=== PATIENT | female | born 1955 | race Caucasian/White ===

== ENCOUNTER 2016-12-03 08:10 | Day surgery (SDC) | payer OTHER ==
[~2016-12-03] VITALS: Ht 162.6 cm; Wt 74.0 kg
[~2016-12-03 08:10] MED LIST: 0.9% Sodium Chloride 1,000 ML IV SCH; ALPR0.254 PO; FEM2.5T PO; HYDR25SU10 RC; IBUP400T22 PO; LOVA40TA PO; Lactated Ringer's 1,000 ML IV ONE; MULT-1018 PO; PARO20TA5 PO; Sodium Chloride LOK Flush 10 mL Syringe IV PRN; ZOLP10TA5 PO; fentaNYL-PF 50 mCg/mL 2 mL Inj IVPUSH PRN
[2016-12-03 08:32] VITALS: BP 112/74; PULSE 75; RESP 16; O2SAT 98
[2016-12-03] MEDS ORDERED: METF500T4 PO (08:32)
[2016-12-03 09:53] VITALS: BP 121/91; PULSE 72; RESP 14; O2SAT 100
--- NOTE | 2016-12-03 11:08 | ENDO ---
[address] [address] ENDOSCOPY PROCEDURE PATIENT: JERALD PITT : 1955 MR#: [id number] ADMIT: 12/03/2016 JOB ID: [id number] PROCEDURE: Flexible sigmoidoscopy. INDICATION: Proctitis. The patient had a colonoscopy late last year for rectal bleeding, and there was distal proctitis. Following that, she was given a prescription for steroid as well as Canasa suppositories. She used the steroid suppositories for about two weeks and then it was discontinued, and she has been on Canasa suppositories. She has had no further bleeding episodes. She presents today for surveillance of proctitis. ASA CLASSIFICATION: 2. MALLAMPATI SCORE: 2. MEDICATIONS: Medications were not given at the patient's request. INSTRUMENT USED: [id number]. PREPARATION QUALITY: Good. PROCEDURE DETAILS: After informed consent was obtained, the patient was brought into the GI suite, where she was placed on oxygen via nasal cannula and monitored with continuous pulse oximeter, telemetry, and blood pressure monitoring. A time-out was performed, and then she was placed in a left lateral decubitus position. Digital rectal exam was performed, which was unremarkable. The pediatric colonoscope was then inserted into the rectum and advanced to approximately 30 cm. At 30 cm, we did encounter stool. At this point, the colonoscope was then withdrawn back into the rectum. In the rectum, retroflexion was performed. Following retroflexion, remaining air in the rectum was suctioned, and procedure was completed. FINDINGS: 1. Normal exam from rectum to 30 cm. 2. Multiple random biopsies were obtained in the distal rectum. 3. No evidence of proctitis seen on today's exam. IMPRESSION: Normal flexible sigmoidoscopy to 30 cm. RECOMMENDATIONS: 1. Await biopsy results. 2. Continue Canasa suppositories. 3. Follow up in GI clinic. COMPLICATIONS: None. ESTIMATED BLOOD LOSS: Less than 5 mL.
--- NOTE | 2016-12-05 18:40 | PATH ---
SURGICAL PATHOLOGY Attending Physician:Keven Oliver CASE STATUS: Signed Out PATIENT NAME: JERALD PITT PID: [id number] : 1955 DATE COLLECTED:12/03/2016 22:22 SPECIMEN: Rectum, Biopsy CLINICAL HISTORY: 1). RECTAL BIOPSY FINAL DIAGNOSIS: Rectal Biopsy: Multiple fragments of inflammatory-type polyp with focal hyperplastic mucosal changes. Negative for dysplasia and neoplasia. ICD10: K63.5 NOTE: Additional levels through the block are non-contributory. GROSS DESCRIPTION: The specimen is received in one formalin filled container labeled with the patient's name, sublabeled "rectal" and consists of 3 portions of tissue which aggregate to 0.3 x 0.3 x 0.2 CM. The specimen is entirely submitted in one cassette. 12/04/2016 [facility] ICD-9 CODES: CPT CODES: 1: 17252 Electronically Signed Out Myriam Reyes MD [facility] Pathology [facility] [address], [place] [address] Technical component performed at [facility], [address] [place] [address] Ave[address], [place], [address]
== END 2016-12-03 23:59 | disposition home or self-care (01) ==
LOC: END 08:10
PROVIDERS: ATTEND Internal Medicine Gastroenterology
DX: K62.89 Other specified diseases of anus and rectum (principal); K63.5 Polyp of colon; Z79.899 Other long term (current) drug therapy